=== PATIENT | female | born 1980 ===

== ENCOUNTER 2021-11-23 08:31 | Emergency (ER) | payer SELFPAY ==
[2021-11-23 10:02] VITALS: BP 113/79
[2021-11-23] MEDS ORDERED: ACETAMINOPHEN 325 MG TAB PO ONE (13:00)
[2021-11-23] MEDS ORDERED: IBUPROFEN 600 MG TAB PO ONE (13:00)
--- NOTE | 2021-11-23 13:01 | Emergency Department Report ---
- General Chief Complaint: Sore Throat Stated Complaint: FLU LIKE SYMPTOMS Time Seen by Provider: 11/23/21 12:47 Source: patient Mode of arrival: Ambulatory Limitations: No Limitations - History of Present Illness Initial Comments: 41-year-old female presents to the ER today with complaints of URI/flulike symptoms. Patient states that symptoms started about 4 days ago. She states that she has had body aches, sore throat, chills, rhinorrhea, nasal congestion, headache and a dry cough. She states that she has been around her other family members who have been sick with similar symptoms. She states that she did have a COVID-19 PCR test done this past Monday and it was negative but she states that a few of her family members retested and it was positive. She has not take n another test. She states that she did get the [employer] COVID-19 vaccine in December and got a booster recently about a month ago. She reports no chest pain, shortness of breath, wheezing, GI or symptoms or any additional symptoms at this time. MD Complaint: cough, sore throat, rhinorrhea, nasal congestion, other (body aches, chilld) -: Gradual, days(s) (4) - Related Data Previous Rx's Medication Instructions Recorded Last Taken Type Benzonatate [Tessalon Perles] 100 mg PO Q8HR PRN #30 capsule 11/23/21 Unknown Rx Ibuprofen [Motrin] 600 mg PO Q8H PRN #30 tablet 11/23/21 Unknown Rx Allergies Allergy/AdvReac Type Severity Reaction Status Date / Time azithromycin Allergy Intermediate Vomiting Verified 11/23/21 10:01 ED Review of Systems ROS: Stated complaint: FLU LIKE SYMPTOMS Other details as noted in HPI Comment: All other systems reviewed and negative Constitutional: chills. denies: fever ENT: throat pain, congestion, other (rhinorrhea). denies: ear pain, dental pain, hearing loss, epistaxis Respiratory: cough. denies: shortness of breath, SOB with exertion, SOB at rest, wheezing Cardiovascular: denies: chest pain, palpitations, dyspnea on exertion, edema, syncope, paroxysmal nocturnal dyspnea Gastrointestinal: denies: abdominal pain, nausea, diarrhea, constipation, hematemesis, melena, hematochezia Genitourinary: denies: urgency, dysuria, frequency, hematuria, discharge, abnormal menses, dyspareunia Musculoskeletal: myalgia. denies: back pain, joint swelling, arthralgia Skin: denies: rash, lesions, change in color, change in hair/nails, pruritus Neurological: headache. denies: numbness, paresthesias, confusion, abnormal gait, vertigo Psychiatric: denies: anxiety, depression, auditory hallucinations, visual h allucinations, homicidal thoughts, suicidal thoughts Hematological/Lymphatic: denies: easy bleeding, easy bruising, swollen glands ED Past Medical Hx - Medications Home Medications: Home Medications Medication Instructions Recorded Confirmed Last Taken Type Benzonatate [Tessalon Perles] 100 mg PO Q8HR PRN #30 capsule 11/23/21 Unknown Rx Ibuprofen [Motrin] 600 mg PO Q8H PRN #30 tablet 11/23/21 Unknown Rx ED Physical Exam - General Limitations: No Limitations General appearance: alert, in no apparent distress - Head Head exam: Present: atraumatic, normocephalic, normal inspection - Eye Eye exam: Present: normal appearance, PERRL, EOMI Pupils: Present: normal accommodation - ENT ENT exam: Present: normal exam, mucous membranes moist, TM's normal bilaterally, other (Nasal congestion noted on exam) - Neck Neck exam: Present: normal inspection, full ROM. Absent: meningismus - Respiratory Respiratory exam: Present: normal lung sounds bilaterally. Absent: respiratory distress, wheezes, rales, rhonchi, stridor - Cardiovascular Cardiovascular Exam: Present: regular rate, normal rhythm, normal heart sounds - GI/Abdominal GI/Abdominal exam: Present: soft. Absent: distended, tenderness, guarding, rebound - Neurological Exam Neurological exam: Present: alert, oriented X3, CN II-XII intact, normal gait - Psychiatric Psychiatric exam: Present: normal affect, normal mood - Skin Skin exam: Present: intact ED Course Vital Signs 11/23/21 10:00 Temperature 97.9 F Pulse Rate 72 Respiratory 16 Rate Blood Pressure 113/79 O2 Sat by Pulse 99 Oximetry Critical care attestation.: If time is entered above; I have spent that time in minutes in the direct care of this critically ill patient, excluding procedure time. ED Disposition Clinical Impression: Viral URI Disposition: HOME / SELF CARE / HOMELESS Is pt being admited?: No Does the pt Need Aspirin: No Condition: Stable Instructions: Upper Respiratory Infection, Adult, [id number] Additional Instructions: Rapid flu and strep today were negative. Your symptoms are likely related to nonspecific viral illness but I do recommend getting a repeat Covid test since your family members had repeat test and they were positive. In the [id number] treatment will be geared towards her symptoms. Take the Tessalon Perles as prescribed to help with cough and, you can also take Zyrtec or Claritin or Kitty from [id number] to help with your runny nose and also recommend either Flonase or Nasonex from [id number] to help with congestion. Take the ibuprofen as prescribed to help with any pain. You can also alternate with Tylenol for pain and fever. Drink lots of fluids. Take a multivitamin including vitamin C, zinc and D. Follow-up closely with your PCP. Return to the ER if your symptoms worsens in any way. Prescriptions: Ibuprofen [Motrin] 600 mg PO Q8H PRN #30 tablet PRN Reason: Pain/fever Benzonatate [Tessalon Perles] 100 mg PO Q8HR PRN #30 capsule PRN Reason: Cough Referrals: PRIMARY CARE, [Primary Care Provider] - 3-5 Days Forms: Work/School Release Form(ED) Time of Disposition: 13:40
== END 2021-11-23 14:02 | disposition home or self-care (01) ==
LOC: ED 08:31
DX: J06.9 Acute upper respiratory infection, unspecified (principal)
CPT/HCPCS: 87116; 87400; 87430; 99283